=== PATIENT | female | born 1970 | race Caucasian/White ===

== ENCOUNTER 2020-07-04 20:05 | Observation (INO) | payer BC, MEDICARE, OTHER ==
[2020-07-04] MEDS ORDERED: Morphine 4 MG/ML VIAL ONE ×2 (21:52→23:46)
[2020-07-04] MEDS ORDERED: Ondansetron PF 4 MG/2 ML Vial ONE (21:52)
--- NOTE | 2020-07-04 22:03 | RAD ---
RIGHT ANKLE 3 VIEWS: Date: 07/04/2020 PROVIDED CLINICAL HISTORY: Pain. FINDINGS: Comparison made with the examination dated 07/25/2012. Postoperative changes of tibiotalar arthrodesis and subtalar fusion are demonstrated. There is no alethea dence for hardware loosening or migration. There is no evidence for fracture or other acute osseous a bnormality. IMPRESSION: No evidence for an acute osseous abnormality. POS: SAUD
[2020-07-04 22:32] LABS: #Eosinphils 0.1 thou/uL (0.0-0.7); #Lymphocytes 1.6 thou/uL (1.20-3.40); #Monocytes 0.5 thou/uL (0.11-0.59); #Neutrophils 3.6 thou/uL (1.40-6.50); %Basophils 0.7 % (0.0-1.0); %Eosinophils 1.1 % (0.0-10.0); %Lymphocytes 27.2 % (21.0-51.0); %Monocytes 9.2 % (0.0-10.0); %Neutrophils 61.9 % (42.0-75.0); Hemoglobin 12.6 g/dL (12.0-16.0); Mean Corpuscular HGB CONC 34.6 g/dL (32.0-36.0); Mean Corpuscular Hemoglobin 32.2 pg (27.0-31.0); Mean Corpuscular Volume 93.1 fL (78.0-98.0); Mean Platelet Volume 7.6 fL (7.4-10.4); Platelet Count 279 thou/uL (130-400); RBC Distribution Width 11.6 % (11.5-14.5); Red Blood Cell (RBC) Count 3.92 mill/uL (4.20-5.40); White Blood Cell (WBC) Count 5.8 thou/uL (4.8-10.8)
[2020-07-04 22:56] LABS: ALT (SGPT) 41 U/L (8-55); AST (SGOT) 65 U/L (5-34); Albumin 3.8 g/dL (3.5-5.0); Alkaline Phosphatase 129 U/L (40-110); Anion Gap 15 mmol/L (10-20); BUN (Urea Nitrogen) 10 mg/dL (9.8-20.1); Bilirubin, Total 0.3 mg/dL (0.2-1.2); Calc. Creatinine Clearance 0 mL/min (70-130); Carbon Dioxide 27 mmol/L (22-29); Chloride 101 mmol/L (98-107); Estimated GFR-MDRD 83; Globulin 3.3 g/dL (2.4-3.5); Glucose 103 mg/dL (70-105); Protein, Total 7.1 g/dL (6.0-8.3); Sodium 140 mmol/L (136-145)
[2020-07-04] MEDS ORDERED: Vancomycin 1 GM/200 ML BAG ONE (23:46)
[2020-07-04] MEDS ORDERED: methylPREDNISolone Sod Succ/PF 125 MG/2 ML VIAL ONE (23:46)
[2020-07-04] MEDS ORDERED: Ketorolac Tromethamine 30 MG/ML VIAL ONE (23:46)
[2020-07-05] MEDS ORDERED: Ondansetron ODT 4 MG TAB PO PRN (00:36)
--- NOTE | 2020-07-05 01:05 | PDOC.HHP ---
Hospitalist HPI - History of Present Illness ankle redness and swelling History of Present Illness: Ms. Holder is a 50F with a pmhx of RA and lupus who presents for R ankle swelling and redness. Pt reports that one week ago she developed ankle pain, fever and redness. She presented to urgent care who recommended watchful waiting. Pt then reports she developed worsening pain, spreading of redness, and inability to bear weight on her R foot. History of multiple ankle surgeries and s/p fusion. Patient reports recent skin injury, stepping on a small piece of glass a few days prior to symptom onset. Pt denies recent travel, surgeries. Denies chest pain or difficulty breathing. Denies weakness/numbness. Pt also endorses recent bout of GI illness, with N/V/D that is now resolved. Denies abdominal pain, m stanton, or hematochezia. In ED vitals signs 183/100, 99, 98.1, 98% on RA. WBC 5.8, H/H 12.6, 36.5. BUN/Cr 10/0.74. CRP 6.9. LE DVT study negative. Ankle plain films revealed post- operative changes, but no fx or acute abnormalities. Patient received methylpredisolone 125 mg, vancomycin 1gram, morphine, toradol, and zofran. Hospitalist ROS - Review of Systems Constitutional: reports: fever. denies: chills, sweats, weakness, malaise, other Eyes: denies: pain, vision change, conjunctivae inflammation, eyelid inflammation, redness, other ENT: denies: ear pain, ear discharge, nose pain, nose discharge, nose congestion, mouth pain, mouth swelling, throat pain, throat swelling, other Respiratory: denies: cough, dry, shortness of breath, hemoptysis, SOB with excertion, pleuritic pain, sputum, wheezing, other Cardiovascular: denies: chest pain, palpitations, orthopnea, paroxysmal noc. dyspnea, edema, light headedness, other Gastrointestinal: reports: nausea, vomiting, diarrhea. denies: abdominal pain, constipation, melena, hematochezia Genitourinary: denies: dysuria, frequency, incontinence, hematuria, retention, other Musculoskeletal: reports: foot pain. denies: neck pain, shoulder pain, arm pain, back pain, hand pain, leg pain, other Skin: denies: rash, lesions, ayde, bruising, other Neurological: denies: weakness, numbness, incoordination, change in speech, confusion, seizures, other - Medication Medications: No home medications. NKDA Hospitalist History - Past Medical History Other Medical History: Medical history includes: Rheumatoid arthritis, lupus. Not currently on any medications for this. - Past Surgical History Other Surgical History: Multiple R ankle surgeries, hysterectomy - Family History Other Family History: Family history of HOCM with a brother who passed at age 15, and mother who also passed of HOCM at age 56. Patient reports she follows with a tiller man and is evaluated every 10 years. 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 - Exam General Appearance: NAD, awake alert Eye: PERRL, anicteric sclera ENT: normocephalic atraumatic, no oropharyngeal lesions, moist mucosa Neck: supple, symmetric, no JVD, no thyromegaly, no lymphadenopathy, no carotid bruit Heart: RRR, no murmur, no gallops, no rubs, normal peripheral pulses Respiratory: CTAB, no wheezes, no rales, no ronchi, normal chest expansion, no tachypnea, normal percussion Gastrointestinal: soft, non-tender, non-distended, normal bowel sounds, no palpable masses, no hepatomegaly, no splenomegaly, no bruit Extremities: no cyanosis, no clubbing, no edema Skin - other findings: Erythema and edema to R ankle Neurological: cranial nerve grossly intact, normal sensation to touch, no weakness, no focal deficits, no new deficit Musculoskeletal: normal tone, normal strength, no muscle wasting Psychiatric: normal affect, normal behavior, A&O x 3 Hospitalist Results - Labs Result Diagrams: 07/05/20 02:09 07/05/20 02:09 Lab results: WBC 5.8 thou/uL (4.8-10.8) 07/04/20 22:02 Hgb 12.6 g/dL (12.0-16.0) 07/04/20 22:02 Hct 36.5 % (36.0-47.0) 07/04/20 22:02 MCV 93.1 fL (78.0-98.0) 07/04/20 22:02 Plt Count 279 thou/uL (130-400) 07/04/20 22:02 Neutrophils % 61.9 % (42.0-75.0) 07/04/20 22:02 ESR Westergren 42 mm/hr (Less than 30) 07/04/20 22:02 Sodium 140 mmol/L (136-145) 07/04/20 22:02 Potassium 3.0 mmol/L (3.5-5.1) L 07/04/20 22:02 Chloride 101 mmol/L (98-107) 07/04/20 22:02 Carbon Dioxide 27 mmol/L (22-29) 07/04/20 22:02 BUN 10 mg/dL (9.8-20.1) 07/04/20 22:02 Creatinine 0.74 mg/dL (0.6-1.1) 07/04/20 22:02 Glucose 103 mg/dL (70-105) 07/04/20 22:02 Calcium 9.0 mg/dL (7.8-10.44) 07/04/20 22:02 Total Bilirubin 0.3 mg/dL (0.2-1.2) 07/04/20 22:02 AST 65 U/L (5-34) H 07/04/20 22:02 ALT 41 U/L (8-55) 07/04/20 22:02 Alkaline Phosphatase 129 U/L (40-110) H 07/04/20 22:02 C-Reactive Protein 6.90 mg/dL (= or < 0.5) H 07/04/20 22:02 Serum Total Protein 7.1 g/dL (6.0-8.3) 07/04/20 22:02 Albumin 3.8 g/dL (3.5-5.0) 07/04/20 22:02 Hospitalist H&P A/P - Problem (1) Cellulitis Code(s): L03.90 - CELLULITIS, UNSPECIFIED Status: Acute (2) Rheumatoid arthritis Code(s): M06.9 - RHEUMATOID ARTHRITIS, UNSPECIFIED Status: Acute (3) Lupus (systemic lupus erythematosus) Code(s): M32.9 - SYSTEMIC LUPUS ERYTHEMATOSUS, UNSPECIFIED Status: Acute (4) Hypokalemia Code(s): E87.6 - HYPOKALEMIA Status: Acute - Plan Plan: R Ankle Cellulitis: 50F with hx of RA, lupus, multiple R ankle surgeries s/p fusion with erythema, edema to R ankle. Cellulitis vs septic arthritis given patient's surgical histo ry, pain with micromotion, and inability to bear weight. Reactive arthritis also in the differential given pt's recent GI illness. Pt reports fever earlier this week, but currently afebrile with no leukocytosis. BP stable. Received 1 g vancomycin in ED as well as 125 mg of methylpredisolone. LE DVT study negative. Plain film with post-operative changes, but no acute findings. PLAN: -IV Vancomycin, IV ceftriaxone -Blood cultures -Trend WBC, CRP, fever curve -Uric acid, stool studies, urine chlamydia/gonnorrhea -Ortho consult History of Rheumatoid Arthritis, SLE: Hx of RA. Pt reports being on multiple medications in the past, however her rheumatolgist and her made the decision to discontinue all medications just prior to COVID pandemic. No recent flares. CRP elevated at 6.9. Pt received 125 mg of methylpredisolone in the ED PLAN: -Continue to monitor -Consider steroids Hypokalemia: Potassium 3.0 on admission. Will replete and monitor as needed. DVT prophylaxis: Lovenox FULL CODE
[2020-07-05 02:19] LABS: Red Blood Cell (RBC) Count 3.99 mill/uL (4.20-5.40); White Blood Cell (WBC) Count 4.5 thou/uL (4.8-10.8)
[2020-07-05 02:20] LABS: #Eosinphils 0.1 thou/uL (0.0-0.7); #Lymphocytes 0.7 thou/uL (1.20-3.40); #Monocytes 0.2 thou/uL (0.11-0.59); #Neutrophils 3.5 thou/uL (1.40-6.50); %Eosinophils 1.3 % (0.0-10.0); %Lymphocytes 16.1 % (21.0-51.0); %Monocytes 3.5 % (0.0-10.0); %Neutrophils 78.1 % (42.0-75.0); Hemoglobin 12.5 g/dL (12.0-16.0); Mean Corpuscular HGB CONC 33.6 g/dL (32.0-36.0); Mean Corpuscular Hemoglobin 31.3 pg (27.0-31.0); Mean Corpuscular Volume 92.9 fL (78.0-98.0); Mean Platelet Volume 7.5 fL (7.4-10.4); Platelet Count 268 thou/uL (130-400); RBC Distribution Width 11.7 % (11.5-14.5)
[2020-07-05 02:42] VITALS: BMI 24.0
[2020-07-05 02:48] LABS: Anion Gap 15 mmol/L (10-20); BUN (Urea Nitrogen) 9 mg/dL (9.8-20.1); Calc. Creatinine Clearance 93 mL/min (70-130); Calcium 9.1 mg/dL (7.8-10.44); Carbon Dioxide 27 mmol/L (22-29); Chloride 101 mmol/L (98-107); Estimated GFR-MDRD 85; Glucose 186 mg/dL (70-105); Potassium 3.1 mmol/L (3.5-5.1); Sodium 140 mmol/L (136-145)
[2020-07-05] MEDS ORDERED: cefTRIAXone\\ROCEPHIN 1 GM VIAL ONE (02:48)
[2020-07-05] MEDS: cefTRIAXone\\ROCEPHIN 1 GM in Sodium Chloride 0.9% 100 ML IVPB SCH (02:54)
[2020-07-05] MEDS ORDERED: Electrolyte Replacement Protoc 1 EACH EACH FS SCH (04:09)
[2020-07-05] MEDS ORDERED: Potassium Chloride 20 MEQ TAB PO SCH (04:15)
[2020-07-05] MEDS ORDERED: Potassium Chloride 20 MEQ TAB ONE (05:48)
[2020-07-05] MEDS ORDERED: CEFAZOLIN 1 GM in Sodium Chloride 0.9% 100 ML IVPB SCH (06:00)
--- NOTE | 2020-07-05 07:30 | ULT ---
RIGHT LOWER EXTREMITY VENOUS DOPPLER: Date: 07/04/2020 PROVIDED CLINICAL HISTORY: Pain. FINDINGS: Hankins scale and color Doppler sonography with spectral analysis was performed of the right common femo ral, femoral, popliteal, posterior tibial, greater saphenous, and profunda femoral veins, demonstrati ng a normal sonographic appearance to each. IMPRESSION: No sonographic evidence for right lower extremity deep venous thrombosis. POS: SAUD
[2020-07-05] MEDS ORDERED: Acetaminophen 325 MG TAB ONE (07:57)
[2020-07-05] MEDS: Acetaminophen 325 MG TAB PO PRN (08:03)
[2020-07-05] MEDS: Enoxaparin Sodium 40 MG/0.4 ML SYRINGE SC SCH (09:06)
[2020-07-05] MEDS ORDERED: Morphine 4 MG/ML VIAL SLOW IVP PRN (10:10)
[2020-07-05] MEDS ORDERED: Morphine 4 MG/ML VIAL ONE ×2 (10:12→14:37)
[2020-07-05] MEDS: Morphine 4 MG/ML VIAL SLOW IVP SCH ×3 (10:18→21:12)
--- NOTE | 2020-07-05 10:27 | CON ---
DATE OF CONSULTATION: We are asked by hospitalist to see the patient. HISTORY OF PRESENT ILLNESS: The patient is a 50-year-old female with an extensive right ankle surgical history, the last three being by Dr. Maged Lafleur. She does suffer with rheumatoid arthritis and lupus. In about a week ago, she stepped on some glass, got the glass out, but over the next few days started having significant pain, redness, swelling around the ankle. So much so that it kept her awake as she came in today. She has already received some antibiotics in the ER and states she feels quite a bit better. Nurse in the ER is outlining her redness but even per patient that has gone down. Dr. Lambert and myself palpated the ankle. It is tender and little bit warm, but no fluctuance found. No other complaints in regard to the ankle. She does have hardware in there and it looks like it is a stable fusion. PAST MEDICAL HISTORY: Rheumatoid arthritis, lupus. SURGERIES: Many right ankle surgeries, revisions, infusion, hysterectomy. FAMILY HISTORY: Noncontributory. SOCIAL HISTORY: Lives with family. She takes care of her father. Rare alcohol. No nicotine or drug use whatsoever. ALLERGIES: NO KNOWN DRUG ALLERGIES. MEDICATIONS: List is not available currently. REVIEW OF SYSTEMS: Right ankle pain. Otherwise denies any other positive review of systems. PHYSICAL EXAMINATION: GENERAL: Well-nourished, well-developed female, alert, pleasant, no acute distress, resting on a gurney in room 16 in the emergency room. VITAL SIGNS: Respirations 16. HEENT: Face symmetric. Tongue midline. NECK: Supple. Trachea midline. EXTREMITIES: Upper extremities equal size, shape, symmetry, normal bulk and tone. Right lower extremity shows some erythema, edema to the right ankle with multiple past healed incisions. Good sensations to the toes, foot, but does have some palpable tenderness to the medial and lateral ankle. The erythema per patient is improved after getting two doses of antibiotics. Ankle palpated, could not appreciate any fluctuance anywhere that would concern us with an abscess formation. Left lower extremity exam normal. DP and PT pulses equal and symmetric. ASSESSMENT: Superficial cellulitis. PLAN: We will let the hospitalist work with the patient. Hopefully, antibiotics will quell this cellulitis. Again, we could palpate no fluctuance. We will see the patient while she is in the hospital with any further ankle care. Postoperatively, she needs to return to her primary, Dr. Lafleur for further ankle followup. Again, we will check on her in the hospital and again hopefully antibiotics will ease this issue. Job ID: [id number]
[2020-07-05 13:36] LABS: SARS-CoV-2 MS2 Positive; SARS-CoV-2 N Gene Negative; SARS-CoV-2 S Gene Negative; SARS-CoV-2 by NAA Not Detected (NotDetected); SARS-CoV-2 orf1ab Negative
[2020-07-05] MEDS: Vancomycin 1 GM in Premix Bag 1 BAG IVPB SCH (15:55)
[2020-07-05] MEDS: Potassium Chloride 20 MEQ TAB PO SCH ×2 (15:56→21:13)
[2020-07-05] MEDS: Melatonin 3 MG TAB PO PRN (21:23)
[2020-07-05 21:29] LABS: Chlam.trachomatis by PCR,Urine Not Detected (NotDetected)
[2020-07-06] MEDS: Morphine 4 MG/ML VIAL SLOW IVP SCH ×7 (00:51→21:06)
[2020-07-06] MEDS: Vancomycin 1 GM in Premix Bag 1 BAG IVPB SCH ×2 (00:53→11:33)
[2020-07-06] MEDS: cefTRIAXone\\ROCEPHIN 1 GM in Sodium Chloride 0.9% 100 ML IVPB SCH (02:48)
[2020-07-06 06:02] LABS: #Eosinphils 0.1 thou/uL (0.0-0.7); #Monocytes 0.3 thou/uL (0.11-0.59); #Neutrophils 2.5 thou/uL (1.40-6.50); %Basophils 0.4 % (0.0-1.0); %Eosinophils 1.4 % (0.0-10.0); %Lymphocytes 40.4 % (21.0-51.0); %Monocytes 6.5 % (0.0-10.0); %Neutrophils 51.3 % (42.0-75.0); Hemoglobin 11.3 g/dL (12.0-16.0); Mean Corpuscular HGB CONC 32.8 g/dL (32.0-36.0); Mean Corpuscular Hemoglobin 31.1 pg (27.0-31.0); Mean Corpuscular Volume 94.6 fL (78.0-98.0); Mean Platelet Volume 7.9 fL (7.4-10.4); Platelet Count 231 thou/uL (130-400); RBC Distribution Width 11.7 % (11.5-14.5); Red Blood Cell (RBC) Count 3.65 mill/uL (4.20-5.40); White Blood Cell (WBC) Count 4.9 thou/uL (4.8-10.8)
[2020-07-06 06:15] LABS: Anion Gap 13 mmol/L (10-20); BUN (Urea Nitrogen) 7 mg/dL (9.8-20.1); Calc. Creatinine Clearance 104 mL/min (70-130); Calcium 8.8 mg/dL (7.8-10.44); Carbon Dioxide 29 mmol/L (22-29); Chloride 105 mmol/L (98-107); Estimated GFR-MDRD Greater than 90; Glucose 118 mg/dL (70-105); Potassium 4.5 mmol/L (3.5-5.1); Sodium 142 mmol/L (136-145)
[2020-07-06] MEDS: Enoxaparin Sodium 40 MG/0.4 ML SYRINGE SC SCH (09:43)
[2020-07-06] MEDS ORDERED: Morphine 4 MG/ML VIAL SLOW IVP SCH (11:30)
[2020-07-06 11:36] LABS: Vancomycin, Trough 14.7 ug/mL
--- NOTE | 2020-07-06 15:36 | PDOC.HOSPP ---
- Subjective Encounter Date: 07/06/20 Encounter Time: 10:00 Subjective: Patient seen for follow-up regarding cellulitis. Reports feeling better. Not ambulating. - Objective Vital Signs & Weight: Vital Signs (12 hours) Temp Pulse Resp BP BP Pulse Ox 07/06/20 12:29 98.6 F 57 L 18 139/93 H 98 07/06/20 08:31 99.1 F 54 L 18 152/101 H 97 07/06/20 04:44 98.6 F 87 18 153/97 H 97 Weight Admit Weight 139 lb 15.84 oz Weight 139 lb 15.84 oz I&O: 07/05/20 07/06/20 07/07/20 06:59 06:59 06:59 Intake Total 3283 Output Total 700 Balance 2583 Result Diagrams: 07/06/20 05:34 07/06/20 05:34 Additional Labs: I reviewed patient's labs and MAR Hospitalist ROS - Review of Systems Cardiovascular: denies: chest pain, palpitations, orthopnea, paroxysmal noc. dyspnea, edema, light headedness Gastrointestinal: denies: nausea, vomiting, abdominal pain, diarrhea, constipation, melena, hematochezia Musculoskeletal: reports: foot pain - Medication Medications: Active Medications Generic Name Dose Route Start Last Admin Trade Name Freq PRN Reason Stop Dose Admin Acetaminophen 650 mg 07/05/20 00:36 07/05/20 08:03 Acetaminophen 325 Mg Tab PO 650 mg Q4H PRN Administration Headache/Fever/Mild Pain (1-3) Enoxaparin Sodium 40 mg 07/05/20 09:00 07/06/20 09:43 Enoxaparin Sodium 40 Mg/0.4 Ml Syringe SC 40 mg 09 LEDA Administration Vancomycin HCl 1 gm/ Device 200 mls @ 200 mls/hr 07/05/20 12:00 07/06/20 11:33 IVPB 200 mls 1200,2359 LEDA Administration Melatonin 3 mg 07/05/20 21:11 07/05/20 21:23 Melatonin 3 Mg Tab PO 3 mg HS PRN Administration Insomnia Morphine Sulfate 4 mg 07/05/20 13:00 07/06/20 14:17 Morphine 4 Mg/Ml Vial SLOW IVP 4 mg Q4HR LEDA Administration - Exam General Appearance: awake alert Eye: anicteric sclera ENT: moist mucosa Neck: supple Heart: RRR Respiratory: CTAB Gastrointestinal: soft, non-tender Extremities: no cyanosis Skin: normal turgor Musculoskeletal: no muscle wasting Psychiatric: normal affect, normal behavior Hosp A/P - Plan (1) Cellulitis Code(s): L03.90 - CELLULITIS, UNSPECIFIED Status: Acute (2) Rheumatoid arthritis Code(s): M06.9 - RHEUMATOID ARTHRITIS, UNSPECIFIED Status: Acute (3) Lupus (systemic lupus erythematosus) Code(s): M32.9 - SYSTEMIC LUPUS ERYTHEMATOSUS, UNSPECIFIED Status: Acute (4) Hypokalemia Code(s): E87.6 - HYPOKALEMIA Status: Resolved - Plan Patient has clinically improved. Change antibiotic to clindamycin. Ambulate patient. Appreciate orthopedic surgery service input. Patient likely home later today or tomorrow.
[2020-07-06] MEDS: Clindamycin 150 MG CAP PO SCH (17:15)
[2020-07-06] MEDS: Melatonin 3 MG TAB PO PRN (21:05)
[2020-07-07] MEDS: Vancomycin 1 GM in Premix Bag 1 BAG IVPB SCH ×2 (00:59→13:05)
[2020-07-07] MEDS: Morphine 4 MG/ML VIAL SLOW IVP SCH ×4 (00:59→13:05)
[2020-07-07] MEDS: Clindamycin 150 MG CAP PO SCH ×2 (00:59→08:40)
[2020-07-07 06:29] LABS: #Lymphocytes 1.6 thou/uL (1.20-3.40); #Monocytes 0.4 thou/uL (0.11-0.59); #Neutrophils 3.2 thou/uL (1.40-6.50); %Basophils 0.5 % (0.0-1.0); %Eosinophils 0.9 % (0.0-10.0); %Lymphocytes 30.1 % (21.0-51.0); %Monocytes 7.6 % (0.0-10.0); %Neutrophils 60.9 % (42.0-75.0); Mean Corpuscular HGB CONC 33.9 g/dL (32.0-36.0); Mean Corpuscular Hemoglobin 31.8 pg (27.0-31.0); Mean Corpuscular Volume 93.9 fL (78.0-98.0); Mean Platelet Volume 7.7 fL (7.4-10.4); Platelet Count 287 thou/uL (130-400); RBC Distribution Width 11.8 % (11.5-14.5); Red Blood Cell (RBC) Count 4.39 mill/uL (4.20-5.40); White Blood Cell (WBC) Count 5.3 thou/uL (4.8-10.8)
[2020-07-07 06:52] LABS: Anion Gap 16 mmol/L (10-20); BUN (Urea Nitrogen) 8 mg/dL (9.8-20.1); Calc. Creatinine Clearance 100 mL/min (70-130); Calcium 9.5 mg/dL (7.8-10.44); Carbon Dioxide 28 mmol/L (22-29); Chloride 102 mmol/L (98-107); Estimated GFR-MDRD Greater than 90; Glucose 111 mg/dL (70-105); Potassium 4.5 mmol/L (3.5-5.1); Sodium 141 mmol/L (136-145)
[2020-07-07] MEDS: Enoxaparin Sodium 40 MG/0.4 ML SYRINGE SC SCH (08:40)
[2020-07-07] MEDS ORDERED: Senokot S 8.6-50 MG TAB PO SCH (09:00)
[2020-07-07] MEDS: Acetaminophen 325 MG TAB PO PRN (13:04)
[2020-07-07 14:53] VITALS: BP 126/90; TEMP 98.6
--- NOTE | 2020-07-08 06:24 | DIS ---
DATE OF ADMISSION: 07/05/2020 DATE OF DISCHARGE: 07/07/2020 PRIMARY CARE PROVIDER: Unknown. DISCHARGE DIAGNOSES: 1. Cellulitis. 2. Hypokalemia. 3. COVID-19 test negative. CONDITION OF PATIENT ON THE DAY OF DISCHARGE: Stable. I assessed Ms. Holder on the day of discharge. She denies any chest pain or shortness of breath. Vital signs are stable. S1 and S2 are heard, regular. Lungs are clear to auscultation bilaterally. CONSULTATIONS DURING THIS HOSPITALIZATION: Orthopedic Surgery, Mr. Marlo Reeder. DISCHARGE MEDICATIONS: Clindamycin 300 mg 3 times a day for 10 days. HOSPITAL COURSE: Ms. Holder is a pleasant 50-year-old lady, who was admitted to [facility] on July 05, 2020, for cellulitis over the right ankle. She was started on intravenous antibiotics. She was seen by Orthopedic Surgery Service. She improved. Orthopedic surgery service recommends her to follow up with her orthopedic surgeon within a week. She was also seen by physical therapy evaluation and ambulated with a crutch. She is also being fitted with a boot prior to discharge. Many thanks for allowing me to participate in your patient's care. Please feel free to contact me with any questions or concerns. DISCHARGE DESTINATION: Home. POST-ACUTE CARE FOLLOWUP: With primary care provider in 3 days and with an orthopedic surgeon in 1 week. DIET: Regular. ACTIVITY: As tolerated. TIME SPENT: Total amount of time spent coordinating this discharge: 25 minutes. Job ID: [id number]
== END 2020-07-07 13:50 | disposition home or self-care (01) ==
LOC: ERS 20:05 → ERHOLD 07-05 → T4-B 07-05 15:30
PROVIDERS: ADMIT Internal Medicine; ATTEND Internal Medicine
DX: L03.90 Cellulitis, unspecified (principal); E87.6 Hypokalemia; M06.9 Rheumatoid arthritis, unspecified; M32.9 Systemic lupus erythematosus, unspecified; Z20.828 Contact with and (suspected) exposure to other viral communicable diseases
CPT/HCPCS: 36415; 80048; 80053; 80202; 84550; 85025; 85652; 86140; 87040; 87491; 87591; 87635; 96365; 96366; 96372; 96375; 96376; G0378; J0696; J1650; J1885; J2270; J2405; J2930; J3370; J3490; U0003